=== PATIENT | male | born 1990 ===

== ENCOUNTER 2021-04-24 06:55 | Emergency (ER) | payer SELFPAY ==
[2021-04-24] MEDS ORDERED: Sodium Chloride 0.9% 10 ML Syringe FLUSH PRN (07:27)
[2021-04-24] MEDS ORDERED: cefTRIAXone 2 GM in Sodium Chloride 0.9% 100 ML IV ONE (07:28)
[2021-04-24] MEDS ORDERED: Ketorolac 30 MG/ML SDV IVPUSH SCH (07:45)
== END 2021-04-24 08:47 | disposition home or self-care (01) ==
LOC: JD.ED 06:55
DX: K04.7 Periapical abscess without sinus (principal); E66.9 Obesity, unspecified; Z68.35 Body mass index [BMI] 35.0-35.9, adult; Z72.0 Tobacco use
CPT/HCPCS: 96365; 96375; 99282; J0696; J1885; 99284